=== PATIENT | female | born 1950 | race African-American/Black ===

== ENCOUNTER 2019-08-06 17:40 | Emergency (ER) | payer OTHER ==
[~2019-08-06] VITALS: Ht 170.2 cm; Wt 68.0 kg
[2019-08-07] MEDS ORDERED: SODIUM CHLORIDE 0.9% 1,000 ML IV ONE (00:18)
[2019-08-07] MEDS ORDERED: ONDANSETRON HCL 4MG/2ML INJ IV ONE (00:30)
[2019-08-07 01:53] LABS: BASOPHILS % 0.4 % (0.0-2.0); EOSINOPHILS % 0.2 % (0.0-5.0); HEMATOCRIT. 31.5 % (36.0-48.0); LYMPHOCYTES % 12.3 % (20.0-50.0); MEAN CORPUSCULAR HEMOGLOBIN 25.4 pg (28.0-32.0); MEAN CORPUSCULAR VOLUME 79.6 fL (81.0-99.0); MEAN PLATELET VOLUME 6.1 fl (7.4-10.4); MONOCYTES % 9.8 % (2.0-8.0); NEUTROPHILS % 77.3 % (40.0-76.0); PLATELET 942 x1000/uL (130-400); RED BLOOD CELL COUNT 3.96 mill/uL (4.2-5.4); RED CELL DISTRIBUTION WIDTH 19.6 % (11.6-14.6)
[2019-08-07 01:57] LABS: CHLORIDE 101 mEq/L (98-107)
[2019-08-07] MEDS ORDERED: CLONIDINE 0.2MG TABLET PO ONE (03:00)
[2019-08-07 05:29] VITALS: BP 141/85
== END 2019-08-07 05:29 | disposition home or self-care (01) ==
LOC: ER 17:40
DX: R11.2 Nausea with vomiting, unspecified (principal); I10 Essential (primary) hypertension; Z87.01 Personal history of pneumonia (recurrent); R94.31 Abnormal electrocardiogram [ECG] [EKG]
CPT/HCPCS: 36415; 71045; 80053; 83605; 83690; 83880; 84484; 85025; 93005; 96361; 96374; 99284; C1893; J2405; J7030

== ENCOUNTER 2019-08-18 14:38 | Inpatient (IN) | payer MEDICARE, OTHER ==
[~2019-08-18] VITALS: Ht 170.2 cm; Wt 72.6 kg
[2019-08-18] MEDS ORDERED: SILVER NITRATE APPLICATOR STICK TOP ONE (19:00)
[2019-08-18 20:01] LABS: BASOPHILS % 0.7 % (0.0-2.0); EOSINOPHILS % 0.7 % (0.0-5.0); HEMATOCRIT. 30.4 % (36.0-48.0); HEMOGLOBIN. 9.8 g/dL (12.0-16.0); LYMPHOCYTES % 10.8 % (20.0-50.0); MEAN CORPUSCULAR VOLUME 83.4 fL (81.0-99.0); MEAN PLATELET VOLUME 5.9 fl (7.4-10.4); MONOCYTES % 9.5 % (2.0-8.0); NEUTROPHILS % 78.3 % (40.0-76.0); PLATELET 876 x1000/uL (130-400); RED BLOOD CELL COUNT 3.65 mill/uL (4.2-5.4); RED CELL DISTRIBUTION WIDTH 16.5 % (11.6-14.6)
[2019-08-18 20:06] LABS: CHLORIDE 102 mEq/L (98-107)
[2019-08-18 20:07] LABS: INR 1.2; PROTHROMBIN TIME 12.7 sec (9.6-11.0)
[2019-08-18 22:20] VITALS: BP 147/85
[2019-08-18 22:25] VITALS: BP 147/85
[2019-08-18] MEDS ORDERED: ACETAMINOPHEN 325MG TABLET PO PRN (22:30)
[2019-08-18] MEDS ORDERED: GUAIFENESIN 200MG/10ML SUGAR FREE UDC PO PRN (22:30)
[2019-08-18] MEDS ORDERED: CLONIDINE 0.1MG TABLET PO PRN (22:30)
[2019-08-18] MEDS ORDERED: HYDROCODONE/ACETAMINOPHEN 5/325MG TABLET PO PRN (22:30)
[2019-08-18] MEDS ORDERED: DOCUSATE SODIUM 100MG CAPSULE PO PRN (22:30)
[2019-08-18] MEDS ORDERED: ONDANSETRON HCL 4MG/2ML INJ IV PRN (22:30)
[2019-08-18] MEDS ORDERED: MAGNESIUM/ALUMINUM HYDROXIDE/SIMETHICONE 30ML UDC PO PRN (22:30)
[2019-08-18] MEDS: AMLODIPINE 10MG TABLET PO SCH (23:55)
[2019-08-19 04:00] VITALS: BP 128/79
[2019-08-19 08:00] VITALS: BP 155/77
[2019-08-19] MEDS: AMLODIPINE 10MG TABLET PO SCH (10:08)
[2019-08-19 12:00] VITALS: BP 132/80
[2019-08-19 13:06] LABS: CHLORIDE 105 mEq/L (98-107)
[2019-08-19 15:40] LABS: BASOPHILS % 0.6 % (0.0-2.0); EOSINOPHILS % 1.2 % (0.0-5.0); HEMATOCRIT. 25.5 % (36.0-48.0); HEMOGLOBIN. 8.4 g/dL (12.0-16.0); MEAN CORPUSCULAR HEMOGLOBIN 27.2 pg (28.0-32.0); MEAN CORPUSCULAR VOLUME 82.9 fL (81.0-99.0); MEAN PLATELET VOLUME 6.1 fl (7.4-10.4); MONOCYTES % 10.2 % (2.0-8.0); PLATELET 811 x1000/uL (130-400); RED BLOOD CELL COUNT 3.08 mill/uL (4.2-5.4); RED CELL DISTRIBUTION WIDTH 16.5 % (11.6-14.6)
[2019-08-19 16:00] VITALS: BP 148/81
[2019-08-19 20:00] VITALS: BP 153/82
[2019-08-20] VITALS: BP 155/91
[2019-08-20 04:00] VITALS: BP 157/84
[2019-08-20 08:00] VITALS: BP 167/94
[2019-08-20] MEDS: AMLODIPINE 10MG TABLET PO SCH (08:19)
[2019-08-20 09:37] VITALS: BP 158/92
[2019-08-20 12:00] VITALS: BP 163/92
== END 2019-08-20 12:57 | disposition home or self-care (01) | DRG 919 ==
LOC: ER 14:47 → 6EST 19:20 → EDBEDREQTM 19:38 → EDBEDREQ 19:38 → ENRESERV 19:47
PROVIDERS: ADMIT Hospitalist; ATTEND Emergency Medicine
DX: M96.831 Postprocedural hemorrhage of a musculoskeletal structure following other procedure (principal); E43 Unspecified severe protein-calorie malnutrition; C78.7 Secondary malignant neoplasm of liver and intrahepatic bile duct; N63.10 Unspecified lump in the right breast, unspecified quadrant; K57.90 Diverticulosis of intestine, part unspecified, without perforation or abscess without bleeding; I10 Essential (primary) hypertension; D64.9 Anemia, unspecified; C50.919 Malignant neoplasm of unspecified site of unspecified female breast; Z86.73 Personal history of transient ischemic attack (TIA), and cerebral infarction without residual deficits; Z87.01 Personal history of pneumonia (recurrent); Z87.11 Personal history of peptic ulcer disease; Z90.11 Acquired absence of right breast and nipple; Z68.25 Body mass index [BMI] 25.0-25.9, adult; Z79.899 Other long term (current) drug therapy
CPT/HCPCS: 36415; 71045; 80053; 84134; 85025; 93005; 93970; 97162; 97530; 99285

== ENCOUNTER 2019-09-17 11:16 | Inpatient (IN) | payer MEDICARE, OTHER ==
[~2019-09-17] VITALS: Ht 172.7 cm; Wt 70.8 kg
[2019-09-17] MEDS ORDERED: SODIUM CHLORIDE 0.9% 1000ML BAG (SEPSIS BOLUS) IV ONE (12:15)
[2019-09-17] MEDS ORDERED: VANCOMYCIN 1 G PREMIX 200 ML IV ONE (12:15)
[2019-09-17] MEDS ORDERED: PIPERACILLIN/TAZ 3.375G PREMIX 50 ML IV ONE (12:15)
[2019-09-17 13:03] LABS: BASOPHILS % 0.8 % (0.0-2.0); EOSINOPHILS % 0.1 % (0.0-5.0); LYMPHOCYTES % 20.9 % (20.0-50.0); MEAN CORPUSCULAR HEMOGLOBIN 26.9 pg (28.0-32.0); MEAN PLATELET VOLUME 6.6 fl (7.4-10.4); MONOCYTES % 7.6 % (2.0-8.0); NEUTROPHILS % 70.6 % (40.0-76.0); PLATELET 768 x1000/uL (130-400); RED BLOOD CELL COUNT 1.77 mill/uL (4.2-5.4); RED CELL DISTRIBUTION WIDTH 17.5 % (11.6-14.6)
[2019-09-17 13:11] LABS: CHLORIDE 112 mEq/L (98-107)
[2019-09-17 13:14] LABS: HEMOGLOBIN. 4.8 g/dL (12.0-16.0)
[2019-09-17 13:15] LABS: HEMATOCRIT. 15.2 % (36.0-48.0)
[2019-09-17 13:40] LABS: INR 1.3; PROTHROMBIN TIME 13.7 sec (9.6-11.0)
[2019-09-17] MEDS ORDERED: ACETAMINOPHEN 650MG SUPP PR PRN (17:30)
[2019-09-17] MEDS ORDERED: ONDANSETRON HCL 4MG/2ML INJ IV PRN (17:30)
[2019-09-17] MEDS ORDERED: MAGNESIUM/ALUMINUM HYDROXIDE/SIMETHICONE 30ML UDC PO PRN (17:30)
[2019-09-17] MEDS ORDERED: CLONIDINE 0.1MG TABLET PO PRN (17:30)
[2019-09-17 17:36] LABS: BASOPHILS % 0.6 % (0.0-2.0); EOSINOPHILS % 0.1 % (0.0-5.0); LYMPHOCYTES % 18.6 % (20.0-50.0); MEAN CORPUSCULAR HEMOGLOBIN 27.2 pg (28.0-32.0); MEAN CORPUSCULAR VOLUME 84.8 fL (81.0-99.0); MEAN PLATELET VOLUME 6.7 fl (7.4-10.4); MONOCYTES % 8.9 % (2.0-8.0); NEUTROPHILS % 71.8 % (40.0-76.0); PLATELET 666 x1000/uL (130-400); RED BLOOD CELL COUNT 2.09 mill/uL (4.2-5.4); RED CELL DISTRIBUTION WIDTH 16.3 % (11.6-14.6)
[2019-09-17] MEDS: DEXT 5%/0.45% NACL 1000ML 1,000 ML IV SCH (17:39)
[2019-09-17 17:40] LABS: TOTAL IRON BINDING CAPACITY 218 ug/dL (250-450)
[2019-09-17 17:49] LABS: HEMATOCRIT. 17.7 % (36.0-48.0); HEMOGLOBIN. 5.7 g/dL (12.0-16.0)
[2019-09-18] VITALS: BP_SYST 152; BP_SYST 168; BP_DIAS 84; BP_DIAS 88
[2019-09-18 00:26] LABS: HEMATOCRIT 22.8 % (36.0-48.0); HEMOGLOBIN 7.6 g/dL (12.0-16.0); PLATELET 657 x1000/uL (130-400); RED BLOOD CELL COUNT 2.72 mill/uL (4.2-5.4); RED CELL DISTRIBUTION WIDTH 15.6 % (11.6-14.6)
[2019-09-18 00:44] LABS: INR 1.2; PROTHROMBIN TIME 13.1 sec (9.6-11.0)
[2019-09-18 04:00] VITALS: BP 148/70
[2019-09-18 08:00] VITALS: BP 150/75
[2019-09-18 11:55] LABS: TOTAL IRON BINDING CAPACITY 84 ug/dL (250-450)
[2019-09-18 12:00] VITALS: BP_SYST 148; BP_SYST 161; BP_DIAS 121; BP_DIAS 91
[2019-09-18 16:00] VITALS: BP 157/86
[2019-09-18 20:00] VITALS: BP_SYST 174; BP_SYST 192; BP_DIAS 104; BP_DIAS 99
[2019-09-18] MEDS ORDERED: ACETAMINOPHEN 650MG SUPP PR PRN (21:15)
[2019-09-18] MEDS ORDERED: MAGNESIUM/ALUMINUM HYDROXIDE/SIMETHICONE 30ML UDC PO PRN (21:15)
[2019-09-18] MEDS: CLONIDINE 0.1MG TABLET PO PRN (21:47)
[2019-09-19] VITALS (7 sets, daily range): BP systolic 133–186; BP diastolic 74–102
[2019-09-19 06:38] LABS: BASOPHILS % 0.4 % (0.0-2.0); EOSINOPHILS % 0.5 % (0.0-5.0); HEMOGLOBIN. 7.8 g/dL (12.0-16.0); LYMPHOCYTES % 15.4 % (20.0-50.0); MEAN CORPUSCULAR HEMOGLOBIN 28.6 pg (28.0-32.0); MEAN CORPUSCULAR VOLUME 84.6 fL (81.0-99.0); MEAN PLATELET VOLUME 6.6 fl (7.4-10.4); MONOCYTES % 7.5 % (2.0-8.0); NEUTROPHILS % 76.2 % (40.0-76.0); PLATELET 591 x1000/uL (130-400); RED BLOOD CELL COUNT 2.72 mill/uL (4.2-5.4); RED CELL DISTRIBUTION WIDTH 15.9 % (11.6-14.6)
[2019-09-19 07:09] LABS: CHLORIDE 117 mEq/L (98-107)
[2019-09-19] MEDS ORDERED: ZINC SULFATE 220 MG ( 50 ) CAPSULE PO SCH (09:00)
[2019-09-19] MEDS: ZINC SULFATE 220 MG ( 50 ) CAPSULE PO SCH (09:05)
[2019-09-19] MEDS: CLONIDINE 0.1MG TABLET PO PRN ×2 (09:05→17:06)
[2019-09-19] MEDS ORDERED: POTASSIUM CHLORIDE 20MEQ TABLET SR PO NR (09:15)
[2019-09-19] MEDS: DEXT 5%/0.45% NACL 1000ML 1,000 ML IV SCH ×3 (09:56→23:52)
[2019-09-19] MEDS: FERROUS SULFATE 325MG TABLET PO SCH ×2 (13:29→17:06)
[2019-09-19] MEDS: VANCOMYCIN HCL 1000 MG/20 ML ORAL PO SCH ×2 (18:10→23:56)
[2019-09-20] VITALS: BP 157/86
[2019-09-20] MEDS: FERROUS SULFATE 325MG TABLET PO SCH ×3 (05:36→16:50)
[2019-09-20] MEDS: VANCOMYCIN HCL 1000 MG/20 ML ORAL PO SCH ×4 (05:37→23:46)
[2019-09-20 05:42] VITALS: BP 170/100
[2019-09-20] MEDS: CLONIDINE 0.1MG TABLET PO PRN ×2 (05:42→21:46)
[2019-09-20 07:16] LABS: BASOPHILS % 0.8 % (0.0-2.0); EOSINOPHILS % 0.6 % (0.0-5.0); HEMATOCRIT. 27.6 % (36.0-48.0); HEMOGLOBIN. 8.9 g/dL (12.0-16.0); LYMPHOCYTES % 17.1 % (20.0-50.0); MEAN CORPUSCULAR HEMOGLOBIN 27.9 pg (28.0-32.0); MEAN PLATELET VOLUME 7.1 fl (7.4-10.4); MONOCYTES % 6.4 % (2.0-8.0); NEUTROPHILS % 75.1 % (40.0-76.0); PLATELET 649 x1000/uL (130-400); RED BLOOD CELL COUNT 3.17 mill/uL (4.2-5.4); RED CELL DISTRIBUTION WIDTH 16.2 % (11.6-14.6)
[2019-09-20 08:12] VITALS: BP 175/87
[2019-09-20] MEDS: HYDRALAZINE 20MG/ML VIAL IV PRN (08:55)
[2019-09-20] MEDS: ZINC SULFATE 220 MG ( 50 ) CAPSULE PO SCH (08:55)
[2019-09-20 09:11] LABS: CHLORIDE 115 mEq/L (98-107)
[2019-09-20] MEDS ORDERED: ENALAPRIL 1.25MG/ML VIAL 1ML IV PRN (10:30)
[2019-09-20 12:01] VITALS: BP 120/80
[2019-09-20] MEDS: ONDANSETRON HCL 4MG/2ML INJ IV PRN (13:12)
[2019-09-20] MEDS: DEXT 5%/0.45% NACL 1000ML 1,000 ML IV SCH (13:13)
[2019-09-20 16:14] VITALS: BP 120/80
[2019-09-20 20:00] VITALS: BP 163/91
[2019-09-20] MEDS ORDERED: MAGNESIUM 1 G PREMIX 100 ML IV NR (23:00)
[2019-09-21] VITALS (8 sets, daily range): BP systolic 150–173; BP diastolic 68–98
[2019-09-21] MEDS: HYDRALAZINE 20MG/ML VIAL IV PRN ×2 (00:47→21:29)
[2019-09-21] MEDS: DEXT 5%/0.45% NACL 1000ML 1,000 ML IV SCH ×2 (03:34→17:20)
[2019-09-21] MEDS: VANCOMYCIN HCL 1000 MG/20 ML ORAL PO SCH ×3 (05:13→19:26)
[2019-09-21 07:17] LABS: BASOPHILS % 0.5 % (0.0-2.0); EOSINOPHILS % 0.9 % (0.0-5.0); HEMOGLOBIN. 7.5 g/dL (12.0-16.0); LYMPHOCYTES % 13.8 % (20.0-50.0); MEAN CORPUSCULAR HEMOGLOBIN 27.9 pg (28.0-32.0); MEAN CORPUSCULAR VOLUME 85.6 fL (81.0-99.0); MEAN PLATELET VOLUME 6.7 fl (7.4-10.4); MONOCYTES % 6.2 % (2.0-8.0); NEUTROPHILS % 78.6 % (40.0-76.0); PLATELET 590 x1000/uL (130-400); RED BLOOD CELL COUNT 2.69 mill/uL (4.2-5.4); RED CELL DISTRIBUTION WIDTH 16.1 % (11.6-14.6)
[2019-09-21] MEDS: FERROUS SULFATE 325MG TABLET PO SCH ×3 (07:58→17:21)
[2019-09-21] MEDS: ZINC SULFATE 220 MG ( 50 ) CAPSULE PO SCH (08:00)
[2019-09-21 08:06] LABS: CHLORIDE 115 mEq/L (98-107)
[2019-09-21] MEDS: ONDANSETRON HCL 4MG/2ML INJ IV PRN (08:15)
[2019-09-21] MEDS ORDERED: MAGNESIUM 2 G PREMIX 50 ML IV SCH (10:00)
[2019-09-21] MEDS ORDERED: POTASSIUM CHLORIDE INJ 40 MEQ in DEXT 5% WATER 250 ML IV SCH (10:00)
[2019-09-21 16:45] LABS: T4 FREE 1.41 ng/dL (0.76-1.46)
[2019-09-21 18:52] LABS: FOLIC ACID (FOLATE) SERUM 7.2 ng/mL (>5.38)
[2019-09-22] VITALS (8 sets, daily range): BP systolic 130–178; BP diastolic 73–102
[2019-09-22] MEDS: VANCOMYCIN HCL 1000 MG/20 ML ORAL PO SCH ×4 (00:30→17:44)
[2019-09-22] MEDS: DEXT 5%/0.45% NACL 1000ML 1,000 ML IV SCH ×2 (05:48→17:46)
[2019-09-22 06:59] LABS: HEMATOCRIT. 24.3 % (36.0-48.0); HEMOGLOBIN. 7.8 g/dL (12.0-16.0); MEAN CORPUSCULAR HEMOGLOBIN 27.8 pg (28.0-32.0); MEAN CORPUSCULAR VOLUME 86.7 fL (81.0-99.0); PLATELET 604 x1000/uL (130-400); RED CELL DISTRIBUTION WIDTH 16.2 % (11.6-14.6)
[2019-09-22 07:44] LABS: CHLORIDE 115 mEq/L (98-107)
[2019-09-22] MEDS: ZINC SULFATE 220 MG ( 50 ) CAPSULE PO SCH (09:12)
[2019-09-22] MEDS: FERROUS SULFATE 325MG TABLET PO SCH ×3 (09:12→17:44)
[2019-09-22] MEDS: HYDRALAZINE 20MG/ML VIAL IV PRN ×2 (09:15→18:53)
[2019-09-22] MEDS ORDERED: AMLODIPINE 10MG TABLET PO SCH (09:30)
[2019-09-22 10:34] LABS: PLATELET ESTIMATE INCREASED
[2019-09-22] MEDS ORDERED: HYDRALAZINE HCL 10MG TABLET PO SCH (14:00)
== END 2019-09-22 19:50 | DRG 371 ==
LOC: ER 11:32 → 5WST 15:14 → EDBEDREQ 15:22 → EDBEDREQSVC 15:22 → ENRESERV 20:53 → ER 21:34
PROVIDERS: ADMIT Hospitalist; ATTEND Hospitalist
PROC: 30233N1 Transfusion of Nonautologous Red Blood Cells into Peripheral Vein, Percutaneous Approach (ICD-10-PCS; principal; 2019-09-17)
PROC: 4A10X4Z Monitoring of Central Nervous Electrical Activity, External Approach (ICD-10-PCS; 2019-09-22)
DX: A04.72 Enterocolitis due to Clostridium difficile, not specified as recurrent (principal); G92 Toxic encephalopathy; E43 Unspecified severe protein-calorie malnutrition; G82.50 Quadriplegia, unspecified; C79.51 Secondary malignant neoplasm of bone; E87.0 Hyperosmolality and hypernatremia; C78.7 Secondary malignant neoplasm of liver and intrahepatic bile duct; C77.9 Secondary and unspecified malignant neoplasm of lymph node, unspecified; C50.911 Malignant neoplasm of unspecified site of right female breast; D64.9 Anemia, unspecified; E16.2 Hypoglycemia, unspecified; I10 Essential (primary) hypertension; E87.6 Hypokalemia; I67.1 Cerebral aneurysm, nonruptured; M48.02 Spinal stenosis, cervical region; M50.222 Other cervical disc displacement at C5-C6 level; M50.223 Other cervical disc displacement at C6-C7 level; L89.156 Pressure-induced deep tissue damage of sacral region; D32.0 Benign neoplasm of cerebral meninges; D47.3 Essential (hemorrhagic) thrombocythemia; R26.89 Other abnormalities of gait and mobility; R47.1 Dysarthria and anarthria; M47.812 Spondylosis without myelopathy or radiculopathy, cervical region; G31.9 Degenerative disease of nervous system, unspecified; Z86.73 Personal history of transient ischemic attack (TIA), and cerebral infarction without residual deficits; Z68.23 Body mass index [BMI] 23.0-23.9, adult; Z90.11 Acquired absence of right breast and nipple
CPT/HCPCS: 36415; 70551; 71045; 72141; 72146; 72148; 80053; 82140; 82270; 82607; 82746; 82962; 83036; 83540; 83550; 83605; 83735; 84145; 84439; 84443; 84481; 84484; 85025; 85027; 85384; 86850; 86900; 86920; 87493; 92610; 93005; 93970; 97162; 97166; 99291; J0360; J2405; J2543; J3370; J3475; J3480; J3490; J7030; J7060; P9016